=== PATIENT | female | born 1990 | race Hispanic/Latino ===

== ENCOUNTER 2017-04-24 22:15 | Emergency (ER) | payer SELFPAY ==
[2017-04-25] MEDS ORDERED: OSELTAMIVIR PHOSPHATE 75 MG CAP ONE (00:18)
== END 2017-04-25 00:26 | disposition home or self-care (01) ==
LOC: EDH 22:15
DX: J11.1 Influenza due to unidentified influenza virus with other respiratory manifestations (principal)
CPT/HCPCS: 87804

== ENCOUNTER 2017-10-13 18:04 | Emergency (ER) | payer OTHER ==
[2017-10-13] MEDS ORDERED: KETOROLAC TROMETHAMINE 15MG/ML ONE (19:49)
[2017-10-13] MEDS ORDERED: ONDANSETRON HCL 4 MG/2 ML VIAL ONE (19:50)
[2017-10-13] MEDS ORDERED: SODIUM CHLORIDE 0.9% 500ML 500 ML IV ONE (19:50)
[2017-10-13] MEDS ORDERED: METOCLOPRAMIDE 10 MG/2 ML VIAL ONE (19:50)
[2017-10-13] MEDS ORDERED: DiphenhydrAMINE HCL 50 MG/ML VIAL ONE (19:50)
== END 2017-10-13 21:37 | disposition home or self-care (01) ==
LOC: EDH 18:04
DX: R51 Headache (principal)
CPT/HCPCS: 96374; 96375; 99284; J1200; J1885; J2405; J2765; J7040

== ENCOUNTER 2022-04-19 11:21 | Emergency (ER) | payer OTHER ==
[~2022-04-19] VITALS: Ht 152.4 cm; Wt 68.0 kg
[2022-04-19] MEDS ORDERED: BENZ-39 PO (12:27)
[2022-04-19] MEDS ORDERED: IBUP-2070 PO (12:27)
[2022-04-19] MEDS ORDERED: FLUT16H NASAL (12:27)
[2022-04-19] MEDS ORDERED: D-ME118S47 PO (12:27)
[2022-04-19] MEDS ORDERED: NIRM1TAB PO (12:27)
[2022-04-19 12:42] VITALS: BP 124/78
== END 2022-04-19 12:52 | disposition home or self-care (01) ==
LOC: EDH 11:21
DX: U07.1 COVID-19 (principal); B34.9 Viral infection, unspecified
CPT/HCPCS: 99283; 87635; 87804 ×2; C9803

== ENCOUNTER 2024-01-23 12:55 | Emergency (ER) | payer SELFPAY ==
[~2024-01-23] VITALS: Ht 162.6 cm; Wt 80.7 kg
[~2024-01-23 12:55] MED LIST: BENZ-39 PO; BROM118S48 PO; FLUT16H NASAL; IBUP-2070 PO; NIRM1TAB PO
[2024-01-23 14:15] VITALS: O2SAT 98
[2024-01-23] MEDS: DiphenhydrAMINE HCL 25 MG CAPSULE PO ONE (14:29)
[2024-01-23] MEDS: ibuPROFEN 800 MG TAB PO ONE (14:29)
[2024-01-23] MEDS ORDERED: BENZ-39 PO (15:59)
[2024-01-23] MEDS ORDERED: IBUP-2077 PO (15:59)
[2024-01-23] MEDS ORDERED: DIPH50 PO (15:59)
[2024-01-23] MEDS ORDERED: ALBUHFA IH (15:59)
[2024-01-23 16:36] VITALS: BP 117/74; PULSE 72; RESP 16; TEMP 98.3
== END 2024-01-23 16:44 | disposition home or self-care (01) ==
LOC: EDH 12:55
DX: J06.9 Acute upper respiratory infection, unspecified (principal); R05.9 Cough, unspecified; K08.89 Other specified disorders of teeth and supporting structures; L50.9 Urticaria, unspecified
CPT/HCPCS: 99284; 71045; 84703; 36415; Q0163